=== PATIENT | female | born 1985 | race American Indian/Alaskan Native ===

== ENCOUNTER 2020-01-07 20:22 | Emergency (ER) | payer SELFPAY ==
[2020-01-07 20:55] VITALS: BP 141/90
== END 2020-01-08 01:00 | disposition left against medical advice (07) ==
LOC: ED 20:22
DX: R10.9 Unspecified abdominal pain (principal); J02.9 Acute pharyngitis, unspecified; R22.0 Localized swelling, mass and lump, head; Z53.21 Procedure and treatment not carried out due to patient leaving prior to being seen by health care provider